=== PATIENT | male | born 1955 | race Caucasian/White ===

== ENCOUNTER 2016-07-04 13:41 | Emergency (ER) | payer OTHER, MEDICARE ==
[2016-07-04 14:20] LABS: BASOPHILS 0.4 %; BASOPHILS ABSOLUTE 0.04 10/3/uL (0.0-0.16); EOSINOPHILS 6.5 %; EOSINOPHILS ABSOLUTE 0.73 10/3/uL (0.0-0.53); ER CBC TAT 0 Hrs 08 Mins; HEMATOCRIT 40.9 % (40.0-51.0); HEMOGLOBIN 12.5 g/dL (13.6-17.8); IMMATURE GRANULOCYTES 0.3 %; IMMATURE GRANULOCYTES ABSOLUTE 0.03 10/3/uL (0.0-0.11); LYMPHOCYTES 20.6 %; LYMPHOCYTES ABSOLUTE 2.31 10/3/uL (0.67-4.30); MEAN CORPUS HGB CONC 30.6 g/dL (32.0-36.0); MEAN CORPUSCULAR VOLUME 98.3 fL (80-100); MEAN PLATELET VOLUME 10.3 fL (9.2-13.0); MONOCYTES 6.8 %; MONOCYTES ABSOLUTE 0.76 10/3/uL (0.21-1.20); NEUTROPHILS 65.4 %; NEUTROPHILS ABSOLUTE 7.32 10/3/uL (2.02-8.40); PLATELET COUNT 258 10/3/uL (150-400); RBC DISTRIBUTION WIDTH 13.6 % (12.0-16.0); RED CELL COUNT 4.16 10/6/uL (4.7-6.1); WHITE BLOOD CELLS 11.2 10/3/uL (4.5-10.5)
[2016-07-04 14:21] LABS: MANUAL DIFF NO %
[2016-07-04 14:27] LABS: PARTIAL THROMBO TIME 27.5 SEC (22.5-37.2)
[2016-07-04 14:34] LABS: BUN (BLOOD UREA NITROGEN) 15 MG/DL (6-23); CALCIUM, SERUM 10.1 MG/DL (8.5-10.4); CHEST PAIN PROFILE TAT 0 Hrs 22 Mins; CHLORIDE, SERUM 103 MMOL/L (96-112); CO2 (CARBON DIOXIDE) 37 MMOL/L (24-34); CREATININE 0.83 MG/DL (0.70-1.30); GFR AFRICAN AMERICAN 112 ML/MIN (>=60); GFR NON AFRICAN AMERICAN 96 ML/MIN (>=60); GLUCOSE, SERUM 71 MG/DL (60-99); POTASSIUM, SERUM 4.2 MMOL/L (3.5-5.3); SODIUM, SERUM 144 MMOL/L (135-148); TROPONIN I <0.02 NG/ML (<0.05)
[2016-07-04 15:13] LABS: BE (BASE EXCESS) 9.1 MEQ/L (0 +/- 2.5); CARBOXYHEMOGLOBIN 6.7 % (0-3); HCO3 (ACTUAL BICARBONATE) 37.6 MEQ/L (23-27); HEMOBLOGIN CONTENT 13.1 G/DL (14-18); INSTRUMENT SERIAL # 8087; METHEMOGLOBIN 0.3 % (0-3); O2 CONTENT 15.7 VOL% (18-24); OPERATOR ID 35784; PCO2 (CO2 TENSION) 72 MMHG (35-45); PO2 (O2 TENSION) 62 MMHG (79-93); SAMPLE Arterial; pH 7.34 (7.37-7.43)
== END 2016-07-04 16:48 | disposition home or self-care (01) ==
LOC: ER 13:41
PROVIDERS: Emergency Medicine
DX: J44.9 Chronic obstructive pulmonary disease, unspecified (principal); I10 Essential (primary) hypertension; F17.200 Nicotine dependence, unspecified, uncomplicated
CPT/HCPCS: 36600; 71010; 80048; 82805; 83735; 84484; 85025; 85610; 85730; 93005; 94640; 99285